=== PATIENT | female | born 1985 | race Caucasian/White ===

== ENCOUNTER 2019-06-03 10:10 | Emergency (ER) | payer OTHER, MEDICAID ==
[~2019-06-03] VITALS: Ht 165.1 cm; Wt 61.2 kg
[~2019-06-03 10:10] MED LIST: AMOXICILLIN 50500 MG PO; DICLEGIS DR 101 EACH PO; POTASSIUM20 PO; ZOFRAN ODT4 MG DISSOLVE
[2019-06-03] MEDS ORDERED: MEDROLDOSEPACK PO (13:55)
[2019-06-03] MEDS ORDERED: MOBIC7.5 MG PO (13:55)
[2019-06-03 13:56] VITALS: BP 122/70
[2019-06-03] MEDS ORDERED: NORCO 5-325 TA1 EAC1 PO (14:09)
== END 2019-06-03 14:54 | disposition home or self-care (01) ==
LOC: M.ERS 10:10
DX: S32.19XA Other fracture of sacrum, initial encounter for closed fracture (principal); M51.16 Intervertebral disc disorders with radiculopathy, lumbar region; W10.8XXA Fall (on) (from) other stairs and steps, initial encounter; Y93.89 Activity, other specified; Y92.89 Other specified places as the place of occurrence of the external cause; Y99.8 Other external cause status